=== PATIENT | female | born 1975 | race Caucasian/White ===

== ENCOUNTER 2023-08-31 14:16 | Emergency (ER) | payer MEDICAID ==
[~2023-08-31] VITALS: Ht 167.6 cm; Wt 77.0 kg
[2023-08-31 14:18] VITALS: TEMP 98.4; O2SAT 99
[2023-08-31] MEDS: HYDROXYZINE 25MG TABLET PO ONE (16:51)
[2023-08-31 16:54] VITALS: BP 148/94; PULSE 80; RESP 16
== END 2023-08-31 16:58 | disposition home or self-care (01) ==
LOC: ER 14:16
DX: F41.9 Anxiety disorder, unspecified (principal); I10 Essential (primary) hypertension
CPT/HCPCS: 93005; 99283